=== PATIENT | male | born 1995 | race African-American/Black ===

== ENCOUNTER 2022-04-30 06:52 | Emergency (ER) | payer MEDICAID ==
[~2022-04-30] VITALS: Ht 180.3 cm; Wt 98.2 kg
[2022-04-30 07:11] VITALS: BP 122/67
[2022-04-30] MEDS ORDERED: T3 PO (07:33)
[2022-04-30] MEDS ORDERED: AMOX1TAB16 PO (07:33)
[2022-04-30] MEDS ORDERED: IBUP-2030 PO (07:33)
[2022-04-30] MEDS ORDERED: IBUPROFEN 800MG TABLET PO ONE (07:45)
== END 2022-04-30 08:13 | disposition home or self-care (01) ==
LOC: ER 06:52
DX: K04.7 Periapical abscess without sinus (principal)
CPT/HCPCS: 99282